=== PATIENT | male | born 1965 | race Caucasian/White ===

== ENCOUNTER → 2018-10-09 14:06 | Outpatient (CLI) | payer OTHER, MEDICAID, SELFPAY ==
[2018-10-09 14:59] LABS: Alanine Aminotransferase 42 IU/L (21-72); Albumin 4.9 g/dL (3.5-5.0); Albumin Globulin Ratio 1.6 (1.0-2.8); Alkaline Phosphatase 60 U/L (38-126); Aspartate Aminotransferase 32 IU/L (17-59); BUN Creatinine Ratio 28.8 (6-22); Bilirubin Total 0.6 mg/dL (0.2-1.3); Blood Urea Nitrogen 23 mg/dL (9-20); Calcium 9.8 mg/dL (8.4-10.2); Carbon Dioxide 26 mmol/L (22-32); Chloride 99 mmol/L (98-107); Cholesterol 189 mg/dL (140-199); Estimated Glomerular Filt Rate > 60.0 mL/min (>60); Glucose 82 mg/dL (70-100); HDL Cholesterol 74 mg/dL (40-60); HEMOLYSIS 15 (0-50); LDL Cholesterol Calculated 101 mg/dL (<100); Potassium 4.6 mmol/L (3.4-5.1); Sodium 137 mmol/L (137-145); Total Protein 7.9 g/dL (6.3-8.2); Triglycerides 72 mg/dL (35-150)
[2018-10-09 15:17] LABS: Vitamin D 25 Hydroxy (D3) 42.7 ng/mL (30.0-100.0)
[2018-10-09 15:28] LABS: Prostate Specific Antigen Scrn 0.371 ng/mL (0.1-4.0)
== END ==
PROVIDERS: PCP Student in an Organized Health Care Education/Training Program; Visit Provider Student in an Organized Health Care Education/Training Program
DX: I10 Essential (primary) hypertension (principal); E78.00 Pure hypercholesterolemia, unspecified; I25.2 Old myocardial infarction; E55.9 Vitamin D deficiency, unspecified; Z79.899 Other long term (current) drug therapy; Z12.5 Encounter for screening for malignant neoplasm of prostate
CPT/HCPCS: 36415; 80053; 80061; 82306; G0103

== ENCOUNTER → 2020-08-29 10:09 | Outpatient (CLI) | payer OTHER, MEDICAID, SELFPAY ==
[2020-08-29 12:17] LABS: BUN Creatinine Ratio 22.8 (6-22); Blood Urea Nitrogen 21 mg/dL (9-20); Calcium 9.2 mg/dL (8.4-10.2); Carbon Dioxide 23 mmol/L (22-32); Chloride 105 mmol/L (98-107); Estimated Glomerular Filt Rate > 60.0 mL/min (>60); Glucose 101 mg/dL (70-100); HEMOLYSIS < 15 (0-50); Potassium 4.4 mmol/L (3.4-5.1); Sodium 137 mmol/L (137-145)
== END ==
PROVIDERS: PCP Student in an Organized Health Care Education/Training Program; Referring Provider Student in an Organized Health Care Education/Training Program; Visit Provider Student in an Organized Health Care Education/Training Program
DX: Z12.5 Encounter for screening for malignant neoplasm of prostate (principal); F17.200 Nicotine dependence, unspecified, uncomplicated; I10 Essential (primary) hypertension
CPT/HCPCS: 36415; 80048; G0103

== ENCOUNTER → 2022-09-03 11:32 | Outpatient (CLI) | payer OTHER, MEDICAID, SELFPAY ==
[2022-09-03 21:40] LABS: Hep C Virus Ab w/Reflex Quant NEGATIVE s/c (NEGATIVE)
[2022-09-04 05:28] LABS: Prostate Specific Antigen Scrn 0.479 ng/mL (0.1-4.0)
== END ==
PROVIDERS: PCP Student in an Organized Health Care Education/Training Program; Referring Provider Student in an Organized Health Care Education/Training Program; Visit Provider Student in an Organized Health Care Education/Training Program
DX: F32.9 Major depressive disorder, single episode, unspecified (principal); Z12.5 Encounter for screening for malignant neoplasm of prostate; Z92.29 Personal history of other drug therapy; Z11.59 Encounter for screening for other viral diseases
CPT/HCPCS: 36415; 84443; 86803; G0103

== ENCOUNTER → 2023-05-15 13:51 | Outpatient (CLI) | payer OTHER, SELFPAY ==
--- NOTE | 2023-05-15 14:00 | DI.CT.S_ITS ---
PROCEDURE: CT LUNG LOW DOSE SCREENING INDICATIONS: Screen for lung cancer TECHNIQUE: Noncontrast 2.0-2.5 mm thick sections acquired from the pulmonary apices to the posterior costophrenic angles. 7 mm thick axial MIP, and 5 mm coronal and sagittal reformats were then acquired. For radiation dose reduction, the following was used: automated exposure control, adjustment of mA and/or kV according to patient size. COMPARISON: [facility], CT, CT ANGIO CHEST PE, 07/19/2019, 10:22. FINDINGS: Image quality: Diagnostic, given the low radiation dose technique. Lungs and pleura: Compared to CT chest dated February 17, 2020, no new or enlarging solid pulmonary nodules or consolidation. Left upper lobe subpleural solid pulmonary nodule measuring 3 mm (3/177). Small cluster of right lower lobe subpleural cysts (3/205, 5/58). Bilateral pleural effusions have resolved. Dependent atelectasis. Mild apical predominant centrilobular and paraseptal emphysema. Patent central airways. Mediastinum: Heart size is mildly enlarged, stable. No pericardial effusion. Small amount of curvilinear fat deposition in the left ventricular wall suggestive of remote myocardial infarct (2/49). No mediastinal adenopathy by size criteria. Ascending aorta is dilated measuring 4.5 cm. Main pulmonary artery is mildly enlarged measuring 3.2 cm. Lad coronary vessel calcifications/stent. Mild right coronary vessel calcification. Esophagus is normal in caliber. No hiatal hernia. Bones and chest wall: No suspicious bony lesions. No vertebral body compression fractures. Mild multilevel degenerative changes of the spine. No axillary or supraclavicular adenopathy by size criteria. No thyroid nodules which require sonographic follow up, per consensus guidelines. Upper Abdomen: Visualized upper abdomen solid organs and bowel loops demonstrate no acute findings in the absence of contrast. Specifically no pneumoperitoneum. Mild calcification of the abdominal aorta. IMPRESSION: 1. Compared to CT PE study dated February 17, 2020, no new or enlarging solid pulmonary nodules or consolidation. Stable left upper lobe subpleural solid pulmonary nodule measuring 3 mm. LUNG-RADS 2; continued annual screening, if eligible. 2. Mild emphysema. 3. Stent in the LAD coronary vessel. Small amount of curvilinear fat deposition in the left ventricular wall suggestive of remote myocardial infarct. Mild right coronary vessel calcifications. 4. Small cluster of right lower lobe subpleural cysts, likely benign. Attention on follow-up imaging. Dictated by: Pietro Rudd M.D. on 05/15/2023 at 18:21 Approved by: Pietro Rudd M.D. on 05/15/2023 at 18:33
== END ==
PROVIDERS: PCP Student in an Organized Health Care Education/Training Program; Referring Provider Student in an Organized Health Care Education/Training Program; Visit Provider Student in an Organized Health Care Education/Training Program
DX: Z12.2 Encounter for screening for malignant neoplasm of respiratory organs (principal); R91.1 Solitary pulmonary nodule; J43.2 Centrilobular emphysema; J94.8 Other specified pleural conditions; I25.10 Atherosclerotic heart disease of native coronary artery without angina pectoris; Z95.5 Presence of coronary angioplasty implant and graft
CPT/HCPCS: 71271

== ENCOUNTER → 2023-10-17 11:22 | Outpatient (CLI) | payer OTHER, SELFPAY | PROVIDERS: PCP Student in an Organized Health Care Education/Training Program; Visit Provider Student in an Organized Health Care Education/Training Program | DX: N20.0 Calculus of kidney (principal) | CPT/HCPCS: 87086 ==

== ENCOUNTER 2024-04-20 12:14 | Emergency (ER) | payer BC, SELFPAY ==
[2024-04-20 12:18] VITALS: BP 146/73; PULSE 106; RESP 18; TEMP 36.1; O2SAT 97; BMI 31.0
--- NOTE | 2024-04-20 12:45 | EKG_ITS ---
[facility] [address] [address] Test Date: 2024-04-20 Pat Name: Sánchez Kunz Department: [facility] Room: Gender: Male Program Coordinator Executive Education: SHONNA : 1965 Requested By: Order Number: [id number] Reading MD: Sánchez Vegas MD Measurements Intervals [place] Rate: 88 P: 47 CT: 158 QRS: 16 QRSD: 90 T: 52 QT: 386 QTc: 467 Interpretive Statements Normal sinus rhythm Anteroseptal infarct , age undetermined NO PRIOR TRACING Electronically Signed On 04-21-2024 7:19:46 PST by Sánchez Vegas MD
--- NOTE | 2024-04-20 12:46 | ED.PSYCH ---
HPI - Psych General Chief Complaint: Psychiatric Symptoms Stated Complaint: behavioral health Time Seen by Provider: 04/20/24 12:41 Source: patient Mode of arrival: Ambulatory History of Present Illness HPI Narrative: 59-year-old gentleman with a history hyperlipidemia, hypertension detained and admitted to [facility] on April 07 discharged on April 17. Final diagnoses included adjustment disorder with depressed mood, uncomplicated alcohol dependence, uncomplicated cannabis use, unspecified psychosis, major depressive disorder recurrent, severe without psychotic features. Psychiatric medications on discharge included 100 mg of quetiapine at bedtime trazodone 50 mg at bedtime. He was seen by his primary care physician today and is notably pressured, tangential and appears manic. He was sent to the emergency department for additional evaluation. Related Data Home Medications Medication Instructions Recorded Confirmed metoprolol tartrate 25 mg tablet 25 mg PO BID 07/24/19 10/17/23 furosemide 20 mg tablet 20 mg PO DAILY 04/23/23 10/17/23 atorvastatin 20 mg tablet 20 mg PO DAILY 04/20/24 04/20/24 doxycycline monohydrate 100 mg 100 mg PO BID 04/20/24 04/20/24 capsule hydroxyzine pamoate 50 mg capsule mg PO 04/20/24 04/20/24 multivitamin (One Daily Essential 1 tab PO DAILY 04/20/24 04/20/24 tablet) mupirocin 2 % topical ointment 1 applic topical DAILY 04/20/24 04/20/24 nicotine (polacrilex) 4 mg gum 4 mg buccal Q2H 04/20/24 04/20/24 potassium chloride 10 mEq 10 meq PO DAILY 04/20/24 04/20/24 tablet,extended release (Klor-Con) quetiapine 100 mg tablet 100 mg PO ONCE PM 04/20/24 04/20/24 tramadol 50 mg tablet 50 mg PO Q6H PRN 04/20/24 04/20/24 trazodone 50 mg tablet 50 mg PO ONCE PM 04/20/24 04/20/24 Allergies Allergy/AdvReac Type Severity Reaction Status Date / Time Penicillins [PENICILLINS] Allergy Severe SWOLLEN Verified 04/20/24 11:30 THROAT, SOB AND HIVES Review of Systems Review of Systems ROS Unobtainable: Unobtainable due to mental condition Patient History Medical History (Updated 04/20/24 @ 14:41 by Leticia Diaz MD) Morbid obesity History of ST elevation myocardial infarction (STEMI) Obstructive sleep apnea Status post insertion of drug-eluting stent into left anterior descending (LAD) artery Carpal tunnel syndrome (~04/2016) Anxiety (2014) Depression (2016) Foot pain (2012) Rheumatoid arthritis (2005) Allergic rhinitis (1963) Hypertension (~2013) Surgical History History of carpal tunnel release (07/2016) Hx of thumb surgery (2005) History of back surgery (1991) Status post knee surgery Family History Father Loud snoring Sleep apnea Insomnia Restless legs Hypertension Heart disease Depression Anxiety Alcohol abuse Mother Insomnia Hypertension Heart disease Depression Anxiety Alcohol abuse Social History (Updated 07/17/19 @ 10:54 by Navid Washington MD) Smoking Status: Current every day smoker Tobacco: How many years used: 22 second hand exposure: Yes (occasionally when I go out or with a group of people that smoke.) alcohol intake: former substance use type: former substance user Smoking Status: Current every day smoker alcohol intake frequency: 3 or more drinks per day Substance Use Type: marijuana Exam Initial Vital Signs Initial Vital Signs: Vital Signs Temperature 97.0 F L 04/20/24 12:18 Pulse Rate 106 H 04/20/24 12:18 Respiratory Rate 18 04/20/24 12:18 Blood Pressure 146/73 H 04/20/24 12:18 Pulse Oximetry 97 04/20/24 12:18 Oxygen Delivery Method Room Air 04/20/24 12:18 General: Manic, significantly pressured speech, tangential, difficult to refocus or get answers to specific questions HEENT: Moist mucous membranes, normal sclera with reactive pupils, Respiratory: Lungs are clear to auscultation, no wheezing no rales no rhonchi. Full and symmetrical air movement Cardiac: Regular rate and rhythm no murmurs no bruits Abdomen: Soft, nontender, good bowel tones, no flank pain Skin: Warm and dry, bilateral lower extremity edema, left greater than right. Bilateral significant skin breakdown from blisters over the 4 ft Neurologic: Grossly neurologically intact with no obvious asymmetries or abnormalities Extremities: Both feet with significant blisters under the toes and mild evidence of cellulitis secondary to the blisters, no abscesses, no drainage does not describe tenderness in his able to feel the tips of his toes Psych: Pressured tangential speech that does not stop. Continues talking unclear if he is simply talking to talk or if he is responding to internal stimuli Course Orders Ordered: Discontinued Medications Doxycycline Hyclate (Doxycycline Hyclate 100 Mg Tablet) 100 mg PO NOW ONE Stop: 04/20/24 13:24 Last Admin: 04/20/24 13:30 Dose: 100 mg Documented By: ES Vital Signs Vital signs: Vital Signs - 8 hr 04/20/24 12:18 Temperature 97.0 F L Pulse Rate 106 H Respiratory Rate 18 Blood Pressure 146/73 H Pulse Oximetry 97 Oxygen Delivery Method Room Air MDM - Psych Lab Data 04/20/24 13:10 04/20/24 13:10 Labs: Lab Results 04/20/24 04/20/24 04/20/24 Range/Units 13:10 13:10 14:20 WBC 17.4 H (4.5-11.0) X10^3/uL RBC 5.12 (4.5-5.9) X10^6/uL Hgb 15.6 (13.5-17.5) g/dL Hct 46.3 (41-53) % MCV 90.4 (80-100) fL MCH 30.4 (26-34) PG MCHC 33.7 (30-36) % RDW 13.2 (11.6-14.8) % Plt Count 376 (150-400) X10^3/uL Neut % (Auto) 79.1 H (50-75) % Lymph % (Auto) 12.1 L (25-40) % [place] % (Auto) 6.8 (3-14) % Eos % (Auto) 1.2 L (2-4) % Baso % (Auto) 0.8 (0-2) % Neut # (Auto) 49595 H (3915-6384) /uL Lymph # (Auto) 2100 (5468-7530) /uL [place] # (Auto) 1200 H (0-900) /uL Eos # (Auto) 200 (0-450) /uL Baso # (Auto) 100 (0-100) /uL Sodium 139 (137-145) mmol/L Potassium 4.1 (3.4-5.1) mmol/L Chloride 103 (98-107) mmol/L Carbon Dioxide 26 (22-32) mmol/L BUN 22 H (9-20) mg/dL Creatinine 0.90 (0.66-1.25) mg/dL Estimated GFR > 60 (>60) mL/min BUN/Creatinine Ratio 24.4 H (6-22) Glucose 90 (80-110) mg/dL Calcium 9.2 (8.4-10.2) mg/dL Total Bilirubin 0.7 (0.2-1.3) mg/dL AST 32 (17-59) IU/L ALT 37 (<50) IU/L Alkaline Phosphatase 82 (38-126) U/L Total Protein 8.6 H (6.3-8.2) g/dL Albumin 4.7 (3.5-5.0) g/dL Globulin 3.9 (1.7-4.1) g/dL Albumin/Globulin Ratio 1.2 (1.0-2.8) TSH 2.27 (0.47-4.68) uIU/mL Urine Color Yellow Urine Appearance Clear Urine pH 5.0 Normal (4.5-8.0) Ur Specific [place] >=1.030 H (1.000-1.035) Urine Protein Trace H (Negative) Urine Glucose (UA) Negative (Negative) g/dL Urine Ketones 1+ H (NEGATIVE) Urine Occult Blood Negative (Negative) Urine Nitrate Negative (Negative) Urine Bilirubin 1+ H (NEGATIVE) Ur Bilirubin Confirm Negative (Negative) Urine Urobilinogen 0.2 (0.2) E.U./dL Ur Leukocyte Esterase Negative (NEGATIVE) Urine RBC None seen (0-5/HPF) Urine WBC None seen (0-5/HPF) Ur Squamous Epith Cells 1-5 /hpf (0-5/HPF) Urine Bacteria None seen (None) Hyaline Casts 1-5/lpf (None) Ur Culture Indicated? Cult not indicated Vol Urine Centrifuged 10ml (spun) U Opiates 300ng/mL cut Negative (Negative) Ur Oxycodone Screen Negative (Negative) Urine Methadone Screen Negative (Negative) Ur Barbiturates Screen Negative (Negative) U Tricyclic Antidepress Negative (Negative) Ur Phencyclidine Scrn Negative (Negative) Ur Amphetamines Screen Negative (Negative) U Methamphetamines Scrn Negative (Negative) Ur MDMA Scrn (Ecstasy) Negative (Negative) U Benzodiazepines Scrn Negative (Negative) Urine Cocaine Screen Negative (Negative) U Marijuana (THC) Screen Positive H (Negative) Urine Specific [place] Normal (Normal) Ethyl Alcohol < 10 ( - 10) mg/dL Ur Creatinine Normal (Normal) SARS-CoV-2 (PCR) Negative (Negative) Urine Dip Bedside Urine Glucose Negative Bedside Urine Bilirubin - Negative Bedside Urine Ketone + 15 Urine Specific [place] 1.030 Bedside Urine Occult Blood +/- Bedside Urine pH 5.5 Bedside Urine Protein +/- 15 Bedside Urine Urobilinogen - Negative Bedside Urine Nitrite - Negative Bedside Urine Leukocytes - Negative Esterase MDM Narrative Medical decision making narrative: CC: Manic Complicating co-morbidities: Discharged after a month if [facility] care facility 3 days ago Data collected from: patient Social determinants of health that may influence the patients condition: Unable to participate much in exam or history due to his confusion and tangential thought Medical records reviewed: Discharge summary from his recent psychiatric stay is reviewed Differential considered: Acute calderon, alcohol or other drug intoxication, acute psychosis Exam documented above, pertinent findings include: Heart and lung exam is benign. He does not stop talking throughout the exam. Significant blisters that have broken down over the bottom of both feet/for feet. Erythema and superficial cellulitis over some of his toes. No drainage or streaking lymphangitic signs Lab Test results independently reviewed as above. Pertinent findings: CBC shows leukocytosis at 17.4 minimal left shift. Metabolic panel is unremarkable Urine does not suggest urinary tract infection TSH is appropriate Urine drug screen shows only marijuana Independently reviewed EKG: Sinus rhythm at a rate of 88. QTC is 467. No signs of ischemia Consultations: Seen by ADVERTISING AGENCY MANAGER, patient would like to go back to [facility] working on voluntary bed Treatments: patient declined any medications to slow his thoughts down a bit - his answer when offered oh god no, why would I want to do that? Re-evaluations: 230pm patient chose to leave the department through the ambulance [place] doors to ostensibly simply check on his dog and go have smoke will see if he returns for further evaluation Discussion: 59-year-old gentleman recently discharged from [facility] after a month of treatment. Seems to be significantly manic but not suicidal or homicidal. He is medically cleared but will need to complete 10 day course of doxycycline for cellulitis related to blisters on the bottom of both feet. We we will continue to look for a voluntary bed at [facility] and see if he does return to the ER in the next few minutes Patient did come back for a few minutes. He was told that there was likely space at [facility] later in the afternoon. he chose to leave again. He walked out the back ambulance bay doors prior to any further discussion with me or the ADVERTISING AGENCY MANAGER. Discharge Plan Departure Patient Disposition: Elopement Clinical Impression: Calderon Cellulitis Qualifiers: Site of cellulitis: extremity Site of cellulitis of extremity: toe Laterality: left Qualified Code(s): L03.032 - Cellulitis of left toe Prescriptions: No Action doxycycline monohydrate 100 mg capsule 100 mg PO BID quetiapine 100 mg tablet 100 mg PO ONCE PM atorvastatin 20 mg tablet 20 mg PO DAILY multivitamin [One Daily Essential] Tablet 1 tab PO DAILY hydroxyzine pamoate 50 mg capsule PO trazodone 50 mg tablet 50 mg PO ONCE PM tramadol 50 mg tablet 50 mg PO Q6H PRN nicotine (polacrilex) 4 mg gum 4 mg buccal Q2H potassium chloride [Klor-Con 10] 10 mEq tablet extended release 10 meq PO DAILY mupirocin 2 % ointment 1 applic topical DAILY furosemide 20 mg tablet 20 mg PO DAILY metoprolol tartrate 25 mg tablet 25 mg PO BID Referrals: Agatha Lord MD [Primary Care Provider] -
[2024-04-20 13:24] LABS: Add Manual Diff / Slide Review NO; Basophils Absolute Auto 100 /uL (0-100); Basophils Percent Auto 0.8 % (0-2); Eosinophils Absolute Auto 200 /uL (0-450); Eosinophils Percent Auto 1.2 % (2-4); Hematocrit 46.3 % (41-53); Hemoglobin 15.6 g/dL (13.5-17.5); Lymphocytes Absolute Auto 2100 /uL (1100-4500); Lymphocytes Percent Auto 12.1 % (25-40); Mean Corpuscular HGB Conc 33.7 % (30-36); Mean Corpuscular Hemoglobin 30.4 PG (26-34); Mean Corpuscular Volume 90.4 fL (80-100); Monocytes Absolute Auto 1200 /uL (0-900); Monocytes Percent Auto 6.8 % (3-14); Neutrophils Absolute Auto 13800 /uL (1500-7000); Neutrophils Percent Auto 79.1 % (50-75); Platelet Count 376 X10^3/uL (150-400); Red Blood Cell Count 5.12 X10^6/uL (4.5-5.9); Red Cell Distribution Width 13.2 % (11.6-14.8); White Blood Cell Count 17.4 X10^3/uL (4.5-11.0)
[2024-04-20 13:27] LABS: UR Morphine/Opiate cutoff 300 Negative (Negative); Ur Creatinine Normal (Normal); Ur Specific Gravity Normal (Normal); Urine Amphetamines Negative (Negative); Urine Barbiturates Negative (Negative); Urine Benzodiazepines Negative (Negative); Urine Cocaine Negative (Negative); Urine MDMA Negative (Negative); Urine Methadone Negative (Negative); Urine Methamphetamines Negative (Negative); Urine Oxycodone Negative (Negative); Urine Phencyclidine Negative (Negative); Urine Tetrahydrocannabinol Positive (Negative); Urine Tricyclic Antidepressant Negative (Negative); Urine pH Normal (Normal)
[2024-04-20] MEDS: DOXYCYCLINE HYCLATE 100 MG TABLET PO (13:30)
[2024-04-20 13:32] LABS: Appearance Urine UA CLEAR; Bilirubin Urine UA 1+ (NEGATIVE); Color Urine UA YELLOW; Glucose Urine UA NEGATIVE (Negative); Ketones Urine UA 1+ (NEGATIVE); Leukocyte Esterase Urine UA NEGATIVE (NEGATIVE); Nitrite Urine UA NEGATIVE (Negative); Occult Blood Urine UA NEGATIVE (Negative); Protein Urine UA TRACE (Negative); Specific Gravity Urine UA >=1.030 (1.000-1.035); Urobilinogen Urine UA 0.2 E.U./dL (0.2)
[2024-04-20 13:36] LABS: Ictotest Urine Negative (Negative); Urine Volume 10mL (spun)
[2024-04-20 13:37] LABS: Bacteria Urine None Seen; Culture Indicated Urine Cult Not Indicated; Hyaline Casts Urine 1-5/LPF; RBC Urine None Seen (0-5/HPF); Squamous Epithelial Cell Urine 1-5 /HPF (0-5/HPF); WBC Urine None Seen (0-5/HPF)
[2024-04-20 13:44] LABS: Alanine Aminotransferase 37 IU/L (<50); Albumin 4.7 g/dL (3.5-5.0); Albumin Globulin Ratio 1.2 (1.0-2.8); Alkaline Phosphatase 82 U/L (38-126); Aspartate Aminotransferase 32 IU/L (17-59); BUN Creatinine Ratio 24.4 (6-22); Bilirubin Total 0.7 mg/dL (0.2-1.3); Blood Urea Nitrogen 22 mg/dL (9-20); Calcium 9.2 mg/dL (8.4-10.2); Carbon Dioxide 26 mmol/L (22-32); Chloride 103 mmol/L (98-107); Estimated Glomerular Filt Rate > 60 mL/min (>60); Ethanol (ETOH) < 10 mg/dL; Globulin 3.9 g/dL (1.7-4.1); Glucose 90 mg/dL (80-110); HEMOLYSIS < 15 (0-50); Potassium 4.1 mmol/L (3.4-5.1); Sodium 139 mmol/L (137-145); Total Protein 8.6 g/dL (6.3-8.2)
--- NOTE | 2024-04-20 13:57 | CM.SWNOTE ---
DERMATOLOGICAL SURGEON - Promotional Marketing Agent Assessment DERMATOLOGICAL SURGEON - Promotional Marketing Agent Assessment Start: 04/20/24 13:15 Freq: Status: Active Protocol: Document 04/20/24 13:16 BDL (Rec: 04/20/24 13:56 BDL [id number]) DERMATOLOGICAL SURGEON/Promotional Marketing Agent Assessment Time Spent with Patient Start date 04/20/24 Visit Start Time 12:30 End date 04/20/24 Visit End Time 13:10 Total time Care Management spent on 40 patient visit-in minutes Mental Health Screening Include Onset, Duration, Intensity Presenting Problem Pt presents to the ED after recent pcp visit. Pt's provider believed he is not currently stable and sent him to the ED. Precipitating Event(s) Pt was recently inpatient at [facility] and received a dx of Bipolar disorder. Pt was following up w/ PCP and was the referred to the ED. Patient Strengths Caring dog dad, [place], contractor. Current Behavioral Health Provider(s) Pt denies any current bh Include Facility, Provider, Ph. # providers. Pt reports he is willing to see a therapist because his sisters would recommend it. Psych. Hx Mental Health and Chemical Pt has hx of SI, adjustment Dependency disorder, alcohol dependence, psychosis, and bipolar disorder. Family Hx of Behavioral Abuse Yeah my mom lost it after my dad cheated on her Pt was unable to further elaborate. Psychiatric Hospitalizations (date(s)/ Pt had recent hospitalization location) at [facility]. Pt denies any other hospitalizations. Psychosocial information & Support PT has 3 sisters who are still Systems alive. Pt has lost both parents. Girlfriend. School/Work Pt has been working at [employer] the past 8 months. Legal Concerns Legal Matters - Outstanding Issues None reported. Mental Status Orientation (Person/Place/Time) A/Ox4 Stated Mood I feel on top of the world Affect (Congruent with Mood?) Euphoric, labile, mood congruent. Thought Content - Specify/Describe I have 4 mothers, my 3 older Obsessions, Delusions, Hallucinations sisters and my mom I want to walk on water I'm not afraid of nothing, when it comes to barnacles I can cook them up delicious I would take a pill if my sister gave it to me and it was safe This food is filled with nitrates and not good for me We're all veterans, in our own way I'm an enigma, do you know what that means? look it up then we can talk Hinduism. Thought Processes (Dcreaei-Zcsuifan-Njbv Tangential, disorganized, Wnqovuaq-Hqnzrkxm-Wxenhzlyog- illogical, detailed. Rpkowbwlcaxbrc-Irsokui-Leahealrqlmd- Thought Blocking) Speech (Qyolmo-Obwy-Ftzfuff-Rapid-Soft- Rapid, loud. Loud-Pressured) Motor (Tojqdt-Qbidqsnhk-Jcjv-Other) Normal. Insight (Dezs-Ngdj-Fgim/Limited) Limited. Judgement (Kbkw-Elea-Pdww/Limited) Poor. Impulse Control (Adequate-Impaired) Impaired. Memory (Gfhhscsay-Luzbzn-Rakvtz, Intact. Impaired-Intact) Concentration (Intact-Impaired) Impaired. Attention (Intact-Impaired) Impaired. Behavior (Appropriate-Inappropriate) Cooperative. Risk Assessment Suicidal Ideation (Plan) No Homicidal Ideation (Plan) No Comment That's not even on my mind I love everybody. Intervention Intervention DERMATOLOGICAL SURGEON entered the room to meet w / pt. Pt was speaking to himself and lying on the bed w / his shoes off. Pt had noticeable wounds on the bottom of his feet and toes. DERMATOLOGICAL SURGEON asked pt what brings him into the hospital and he stated a doctor's appointment . When asked for additional details pt grew irritable and stated ask them. Pt was unable to elaborate on the precipitating events that led to him coming to the ED. Pt was recently seen at [facility]. Pt reports that he was grounding and when people found it uncomfortable the pt agreed to go to the hospital voluntarily. Pt reports no hx of mental health treatment. Pt stated he would see a therapist if my sister wanted me to. PT recurrently referred to his sisters as his 3 mothers. Pt displayed signs of paranoia at times stating I'll take the pill if my sister puts it in her hand and tells me it's safe. With all those nitrates in the food it's not good for you but I guess I'll eat it I won't let my dog eat it. Pt at times was hyper-focused on god and uatsdin varying from discussing his own beliefs to educating this DERMATOLOGICAL SURGEON on topics like the [place] of [place]. Pt presents manic and is easily re-directable. Pt has flights of ideas. When discussing the wounds on his feet the pt states I like to see myself bleed and still be alive. I like to ground but maybe you ground in a different way, the blood makes people uncomfortable. When asked for additional details pt was either unable to elaborate or incoherent. Pt is cooperative and willing to engage in inpatient treatment voluntarily. Plan RA Plan It is the opinion of this DERMATOLOGICAL SURGEON that the pt would benefit from inpatient hospitalization for stabilization, medication management, and the development of healthier coping and grounding skills/ techniques. DERMATOLOGICAL SURGEON discussed this w/ ED provider who indicated agreement and understanding. SHAMEKA Heath, MANDY, NICKPT
[2024-04-20 14:30] LABS: TSH w/ Reflex to FT4 2.27 uIU/mL (0.47-4.68)
[2024-04-20 14:48] LABS: COVID19 -Nasal RAPID Negative (Negative)
--- NOTE | 2024-04-20 14:53 | PC.NURSE ---
Patient went out for a smoke and to see his dog @ 7921; returned @ 2110
--- NOTE | 2024-04-20 15:02 | PC.NURSE ---
1500: Left again to smoke; and I've gotta walk--MD notified. If he returns SW and RN will discuss not leaving ER again; either he stays and goes to [place] or he leaves.
== END 2024-04-20 15:47 | disposition left against medical advice (07) ==
PROVIDERS: Emergency Provider Emergency Medicine; PCP Student in an Organized Health Care Education/Training Program
DX: F30.9 Manic episode, unspecified (principal); L03.032 Cellulitis of left toe; D72.829 Elevated white blood cell count, unspecified
CPT/HCPCS: 36415; 80053; 80305; 80320; 81001; 81003; 84443; 85025; 87635; 93005; 93010; 99283; 99284